=== PATIENT | male | born 1985 | race Hispanic/Latino ===

== ENCOUNTER 2020-01-25 | Emergency (ER) | payer SELFPAY ==
[~2020-01-25] MED LIST: AMOXICILLIN500 MG PO; CEPHALEXIN500 MG OR; CEPHALEXIN500 MG PO; PREVACID30 M1 OR; PROVENTIL HFA IN; QVAR80 MCG IN; ZPAK PO
[2020-01-25] MEDS ORDERED: ZITHROMAX250 MG PO (23:13)
[2020-01-25] MEDS ORDERED: TESSALON PER100 MG PO (23:15)
== END 2020-01-26 00:15 | disposition home or self-care (01) | DRG 153 ==
DX: J06.9 Acute upper respiratory infection, unspecified (principal); E11.9 Type 2 diabetes mellitus without complications